=== PATIENT | female | born 1990 | race Caucasian/White ===

== ENCOUNTER → 2017-02-21 | Outpatient (REF) | payer BC, OTHER ==
[~2017-02-21] MED LIST: ACET50TA PO; IBUP-1114 PO; PREN27TA3 PO; PRENTAB9 PO
== END ==
LOC: M LAB REF 09:31
PROVIDERS: ATTEND Physician Assistant
DX: L02.211 Cutaneous abscess of abdominal wall (principal)

== ENCOUNTER → 2018-03-24 | Outpatient (CLI) | payer BC, OTHER ==
[2018-03-24 13:55] LABS: BASO % 0.2 % (0.0-1.0); EOS # 0.1 10^3/uL (0.0-0.50); EOS % 0.7 % (0.0-3.0); HEMATOCRIT 40.8 % (36.0-47.0); HEMOGLOBIN 13.4 g/dl (12.0-15.5); IMMATURE GRANULOCYTE % 0.4 % (0-3.0); LYMPH % 22.3 % (24.0-44.0); MEAN CORPUSCULAR HEMOGLOBIN 29.5 pg (27.0-33.0); MEAN CORPUSCULAR HGB CONC 32.8 g/dl (32.0-36.5); MEAN CORPUSCULAR VOLUME 89.9 fl (80.0-96.0); MONO # 0.5 10^3/uL (0.0-0.8); MONO % 4.9 % (0.0-5.0); NEUTROPHILS # 6.5 10^3/uL (1.8-7.7); NEUTROPHILS % 71.5 % (36.0-66.0); PLATELET COUNT, AUTOMATED 276 10^3/uL (150-450); RED BLOOD COUNT 4.54 10^6/uL (4.00-5.40); RED CELL DISTRIBUTION WIDTH 12.5 % (11.5-14.5); WHITE BLOOD COUNT 9.1 10^3/uL (4.0-10.0)
[2018-03-24 16:07] LABS: CHLAMYDIA DNA AMPLIFICATION NEGATIVE (NEGATIVE); GC DNA AMPLIFICATION NEGATIVE (NEGATIVE)
[2018-03-25 13:26] LABS: HEPATITIS C VIRUS ABY INDEX < 0.0 INDEX (<0.8)
[2018-03-25 13:26] LABS: HBsAg Prenatal NEGATIVE (NEGATIVE); HIV 1&2 SCREEN CENTAUR NEGATIVE (NEGATIVE); RUBELLA IgG QUALITATIVE IMMUNE (IMMUNE)
== END ==
LOC: M SMT 09:34
DX: Z36.89 Encounter for other specified antenatal screening (principal)
CPT/HCPCS: 86762

== ENCOUNTER → 2018-05-08 | Outpatient (CLI) | payer BC, OTHER | LOC: M SMT 10:39 | DX: Z36.89 Encounter for other specified antenatal screening (principal); Z3A.18 18 weeks gestation of pregnancy | CPT/HCPCS: 76811 ==

== ENCOUNTER → 2018-06-22 | Outpatient (CLI) | payer BC, OTHER ==
[~2018-06-22] MED LIST changes: -ACET50TA PO; +MAPA500T2 PO
[2018-06-22 17:47] LABS: HEMATOCRIT 36.3 % (36.0-47.0); MEAN CORPUSCULAR HEMOGLOBIN 29.7 pg (27.0-33.0); MEAN CORPUSCULAR HGB CONC 33.1 g/dl (32.0-36.5); MEAN CORPUSCULAR VOLUME 89.9 fl (80.0-96.0); PLATELET COUNT, AUTOMATED 286 10^3/uL (150-450); RED BLOOD COUNT 4.04 10^6/uL (4.00-5.40); WHITE BLOOD COUNT 12.2 10^3/uL (4.0-10.0)
== END ==
LOC: M SMT 13:39
PROVIDERS: ATTEND Obstetrics & Gynecology
DX: Z34.82 Encounter for supervision of other normal pregnancy, second trimester (principal)
CPT/HCPCS: 36415; 82950; 85027; 86850; 86900; 86901; J2790

== ENCOUNTER → 2018-09-03 | Outpatient (REF) | payer OTHER | LOC: M LAB REF 16:53 | PROVIDERS: ATTEND Obstetrics & Gynecology | DX: Z34.83 Encounter for supervision of other normal pregnancy, third trimester (principal); Z3A.00 Weeks of gestation of pregnancy not specified ==

== ENCOUNTER 2018-10-07 20:31 | Inpatient (IN) | payer BC, OTHER ==
[~2018-10-07] VITALS: Ht 160 cm; Wt 90.2 kg
[2018-10-07 21:50] VITALS: BP 134/80
[2018-10-07] MEDS ORDERED: miSOPROStol 50 MCG 1/2 TAB (S0191) PO ONE (22:45)
[2018-10-07 23:34] LABS: HEMATOCRIT 37.7 % (36.0-47.0); HEMOGLOBIN 12.5 g/dl (12.0-15.5); MEAN CORPUSCULAR HEMOGLOBIN 29.3 pg (27.0-33.0); MEAN CORPUSCULAR HGB CONC 33.2 g/dl (32.0-36.5); MEAN CORPUSCULAR VOLUME 88.3 fl (80.0-96.0); PLATELET COUNT, AUTOMATED 243 10^3/uL (150-450); RED BLOOD COUNT 4.27 10^6/uL (4.00-5.40); WHITE BLOOD COUNT 12.9 10^3/uL (4.0-10.0)
[2018-10-08] VITALS (33 sets, daily range): BP systolic 90–143; BP diastolic 45–96
[2018-10-08] MEDS ORDERED: miSOPROStol 50 MCG 1/2 TAB (S0191) PO ONE (03:30)
--- NOTE | 2018-10-08 06:17 | HPE ---
DATE OF ADMISSION: 10/07/2018 HISTORY OF PRESENT ILLNESS: Nini is a 28-year-old 2, para 1-0-0-1 at 40-5/7 weeks gestation, estimated ate of confinement (EDC) of 10/02/2018 based on last menstrual period and confirmed by first trimester ultrasound. She presents to labor and delivery today for induction of labor due to post-term . She does report some occasional cramping. Denies vaginal bleeding and leakage of fluid. The fetus has been active. Her care was initiated at a woman's perspective in the first trimester. Her course has been uncomplicated. OBSTETRICAL HISTORY: May 2016 39 weeks gestation, 6 pounds 14 ounces male spontaneous vaginal delivery. OBSTETRIC LABS: O negative, antibody screen negative, rubella immune, VDRL nonreactive. Urine culture no growth. Hep B surface antigen negative, HIV negative. Hep C antibody nonreactive. Gonorrhea and chlamydia negative. She declined genetic serum screening labs. Gestational diabetic screening normal at 80 and her GBS is negative. PAST MEDICAL HISTORY: 1. Seasonal allergies. 2. Childhood varicella. FAMILY HISTORY: Hypertension. PAST SURGICAL HISTORY: None. SOCIAL HISTORY: The patient is . Her is at bedside and supportive. She is a nonsmoker. Denies alcohol and drug use. No history of any sexually transmitted infections and denies history of abuse physical, sexual and emotional. ALLERGIES: No known drug allergies. CURRENT MEDICATIONS: - vitamins OBJECTIVE: VITAL SIGNS: Temperature 98.2, pulse 107, respirations 18, blood pressure (BP) is 134/80. She is alert and oriented times three, smiling and talkative. heart rate is 130 with moderate variability, positive accelerations, no decelerations. Contractions irregular approximately every 7-8 minutes palpate mild. Abdomen is gravid, cephalic presentation. Estimated weight 7-1/2 pounds. Sterile vaginal exam: 2 cm dilated 75% effaced, minus three station, mid position. No bloody show with the exam. ASSESSMENT: Intrauterine at 40-5/7 weeks. heart rate category one. PLAN: Admit the patient to labor and delivery. Saline lock. Routine labs. Out of bed ad byron. Regular diet at this time. I do plan to start misoprostol 50 mcg by mouth for cervical ripening and then will likely start intravenous Pitocin. Consider assisted rupture of membranes for labor augmentation. The patient does desire an epidural when she is in active labor. I did review the risks, benefits and alternatives to induction of labor. The patient and her have had all their questions answered. She does verbally consent to emergency surgery and blood products.
[2018-10-08] MEDS ORDERED: LR 1,000 ML IV SCH (08:32)
[2018-10-08] MEDS ORDERED: OXYTOCIN DRIP 30 UNITS in APPROPRIATE DILUENT 1 EA IV SCH ×2 (08:45→17:53)
[2018-10-08] MEDS ORDERED: FENTANYL 2MCG/ML ROPIVACAINE 0.2% IN 0.9% NACL 100ML IVBAG As Ordered ONE (14:50)
--- NOTE | 2018-10-08 14:53 | NUR ---
L&D Note: S: Doing well w/o complaints. Pain is manageable. O: vss, AF FHR 140s, moderate variability and spont accelerations. Contractions q3-4mins pit 5mU Gen: well appearing cx: 4/75/-2, AROm clear A/P: 28yo IOL reassuring status -good candidate for epidural -anticipate Madelin Vargas MD
[2018-10-08] MEDS ORDERED: EPIDURAL/PCA KEYS XX PRN (16:00)
[2018-10-08] MEDS ORDERED: REFRIGERATOR IV KEYS XX PRN (16:00)
[2018-10-08] MEDS ORDERED: EPIDURAL COMMENT XX SCH (16:00)
[2018-10-08] MEDS ORDERED: diphenhydrAMINE INJ 50MG/ML VIAL (J1200) IV PRN (16:00)
[2018-10-08] MEDS ORDERED: FENTANYL/ROPIVACAINE/NACL BAG 100 ML EPIDURAL SCH (16:00)
[2018-10-08] MEDS ORDERED: NALOXONE INJ 0.4 MG/1 ML VIAL (J2310) IV PRN (16:00)
[2018-10-08] MEDS ORDERED: ePHEDrine SULFATE 25 MG/5 ML(5MG/ML) SYRINGE IV PRN (16:00)
[2018-10-08] MEDS ORDERED: LACTATED RINGER'S 1000 ML IV PRN (16:00)
[2018-10-08] MEDS ORDERED: ONDANSETRON 4MG/2ML VIAL (J2405) IV PRN (16:00)
[2018-10-08] MEDS ORDERED: RHOGAM 300 MCG (1500 IU) INJ (J2790) IM SCH (18:00)
[2018-10-08] MEDS ORDERED: ACETAMINOPHEN 500 MG TAB PO PRN (18:00)
[2018-10-08] MEDS ORDERED: METHYLERGONOVINE MALEATE 0.2 MG TAB PO PRN (18:00)
[2018-10-08] MEDS ORDERED: ACETAMINOPHEN TAB 650MG DOSE (2X325MG) PO PRN (18:00)
[2018-10-08] MEDS ORDERED: IBUPROFEN 600 MG TAB PO PRN (18:00)
[2018-10-08] MEDS ORDERED: MOM 30ML SUSPENSION UDC PO PRN (18:00)
[2018-10-08] MEDS ORDERED: DOCUSATE SODIUM 100 MG CAP PO PRN (18:00)
[2018-10-08] MEDS ORDERED: MEASLES,MUMPS,RUBELLA VACCINE INJ (MMR-II) (90707) SC SCH (18:00)
[2018-10-08] MEDS ORDERED: DIBUCAINE 1% OINTMENT 30GM TOP PRN (18:00)
[2018-10-08] MEDS: IBUPROFEN 800 MG TAB PO PRN (20:08)
[2018-10-09 05:46] VITALS: BP 111/62
--- NOTE | 2018-10-09 06:26 | NUR ---
PPD#1 S: Doing well w/o complaints. Pain well controlled, + ambulation, +voids, +BF O: vss, AF gen: well appearing abd: soft, nttp, FF@U ext: neg calf tenderness A/P: PPD #1 s/p NSD, recovering in stable condition -cont routine care -d/c plans for tomorrow, possible late today Madelin Vargas MD
--- NOTE | 2018-10-09 06:30 | DN ---
DATE OF PROCEDURE: 10/08/2018 TIME OF : 1708 GENDER: Male. APGARS: 8 and 9. WEIGHT: 8 pounds 15 ounces or 4050 grams. ANESTHESIA: Epidural. LACERATIONS: None. ESTIMATED BLOOD LOSS: 200 mL. COUNTS: Five laparotomy sponges accounted for prior to and after delivery. DELIVERY NOTE: On 10/08/2018 at 1708, Mrs. Acharya, a 28-year-old 2, now para 2 had a spontaneous vaginal delivery of a live born male infant, Apgars 8 and 9, weight was 8 pounds 15 ounces 4050 grams. Head was delivered occiput anterior (OA) over intact perineum. There was in the nuchal cord, which was manually reduced and this was followed by delivery of right anterior shoulder, left posterior shoulder and corpus. The was handed to mom with good cry. Cord was clamped times two and was cut by the father of the baby under my direction. Placenta was then drained and delivered grossly intact. A pre-mixed bag of 500 mL of normal saline with 30 units of Pitocin was then bolused along with uterine massage. The uterus was firm. On inspection cervix, vagina and perineum were grossly intact and hemostatic. Mom and baby recovered in stable condition. The couple decided to name their son Michael Acharya. GARCIA
[2018-10-09 08:30] VITALS: BP 112/68
[2018-10-09] MEDS: PRENATAL VITAMINS CHEWABLE TABLET PO SCH (09:10)
[2018-10-09] MEDS: IBUPROFEN 800 MG TAB PO PRN (15:21)
[2018-10-09 18:00] VITALS: BP 114/64
[2018-10-10 06:00] VITALS: BP 124/73
[2018-10-10] MEDS: PRENATAL VITAMINS CHEWABLE TABLET PO SCH (09:08)
== END 2018-10-10 13:55 | disposition home or self-care (01) | DRG 560 ==
LOC: M LDI 20:31 → M OBS 10-08 19:05
PROVIDERS: ADMIT Advanced Practice Midwife; ATTEND Advanced Practice Midwife
PROC: 3E033VJ Introduction of Other Hormone into Peripheral Vein, Percutaneous Approach (ICD-10-PCS; 2018-10-07)
PROC: 3E0DXGC Introduction of Other Therapeutic Substance into Mouth and Pharynx, External Approach (ICD-10-PCS; 2018-10-07)
PROC: 10E0XZZ Delivery of Products of Conception, External Approach (ICD-10-PCS; principal; 2018-10-08)
DX: O48.0 Post-term pregnancy (principal); Z37.0 Single live birth; Z3A.40 40 weeks gestation of pregnancy

== ENCOUNTER → 2021-11-14 | Outpatient (REF) | payer OTHER | LOC: M LAB REF 12:11 | PROVIDERS: ATTEND Physician Assistant | DX: J02.9 Acute pharyngitis, unspecified (principal) ==

== ENCOUNTER → 2022-05-14 | Outpatient (CLI) | payer OTHER, BC ==
[2022-05-14 14:33] LABS: HEMATOCRIT 41.7 % (36.0-47.0); HEMOGLOBIN 13.7 g/dl (12.0-15.5); MEAN CORPUSCULAR HEMOGLOBIN 28.7 pg (27.0-33.0); MEAN CORPUSCULAR HGB CONC 32.9 g/dl (32.0-36.5); MEAN CORPUSCULAR VOLUME 87.4 fl (80.0-96.0); PLATELET COUNT, AUTOMATED 289 10^3/uL (150-450); RED BLOOD COUNT 4.77 10^6/uL (4.00-5.40); WHITE BLOOD COUNT 9.4 10^3/uL (4.0-10.0)
[2022-05-14 15:21] LABS: HIV 1&2 SCREEN CENTAUR NEGATIVE (NEGATIVE)
[2022-05-14 15:27] LABS: HEPATITIS C VIRUS ABY INDEX 0.1 INDEX (<0.8)
[2022-05-14 16:07] LABS: GC DNA AMPLIFICATION NEGATIVE (NEGATIVE)
== END ==
LOC: M PLALAB 11:04
PROVIDERS: ATTEND Advanced Practice Midwife
DX: Z34.81 Encounter for supervision of other normal pregnancy, first trimester (principal)

== ENCOUNTER → 2022-06-18 | Outpatient (REF) | payer OTHER | LOC: M PLALAB 12:09 | PROVIDERS: ATTEND Advanced Practice Midwife | DX: Z34.92 Encounter for supervision of normal pregnancy, unspecified, second trimester (principal) ==

== ENCOUNTER → 2022-07-18 | Outpatient (CLI) | payer BC, OTHER | LOC: M WHC 09:45 | PROVIDERS: ATTEND Advanced Practice Midwife | DX: Z34.92 Encounter for supervision of normal pregnancy, unspecified, second trimester (principal); Z3A.19 19 weeks gestation of pregnancy ==

== ENCOUNTER → 2022-09-05 | Outpatient (CLI) | payer BC, OTHER ==
[2022-09-05 17:21] LABS: HEMATOCRIT 36.3 % (36.0-47.0); HEMOGLOBIN 11.9 g/dl (12.0-15.5); MEAN CORPUSCULAR HEMOGLOBIN 30.1 pg (27.0-33.0); MEAN CORPUSCULAR HGB CONC 32.8 g/dl (32.0-36.5); MEAN CORPUSCULAR VOLUME 91.7 fl (80.0-96.0); PLATELET COUNT, AUTOMATED 265 10^3/uL (150-450); RED BLOOD COUNT 3.96 10^6/uL (4.00-5.40); WHITE BLOOD COUNT 11.8 10^3/uL (4.0-10.0)
[2022-09-05 23:21] LABS: GC DNA AMPLIFICATION NEGATIVE (NEGATIVE)
== END ==
LOC: M PLALAB 13:12
PROVIDERS: ATTEND Obstetrics & Gynecology
DX: Z34.92 Encounter for supervision of normal pregnancy, unspecified, second trimester (principal)
CPT/HCPCS: 36415; 82950; 85027; 86850; 86900; 86901; 87810; 87850; J2790

== ENCOUNTER → 2022-11-13 | Outpatient (REF) | payer BC, OTHER | LOC: M SFHCWAGY 16:49 | PROVIDERS: ATTEND Obstetrics & Gynecology | DX: Z34.93 Encounter for supervision of normal pregnancy, unspecified, third trimester (principal) ==

== ENCOUNTER 2022-12-05 18:53 | Inpatient (IN) | payer BC, OTHER ==
[~2022-12-05] VITALS: Ht 157.5 cm; Wt 87.7 kg
[2022-12-05] MEDS ORDERED: METHYLERGONOVINE MALEATE 0.2MG/ML 1ML VIAL IM PRN (19:10)
[2022-12-05] MEDS ORDERED: TRANEXAMIC ACID INJection 1,000 MG in NS 100 ML IV PRN (19:10)
[2022-12-05] MEDS ORDERED: CARBOPROST TROMETHAMINE 250 MCG/ML AMP IM PRN (19:10)
[2022-12-05] MEDS ORDERED: LACTATED RINGER'S 1000 ML IV PRN (19:10)
[2022-12-05] MEDS ORDERED: OXYTOCIN DRIP 30 UNITS in IV 1 EA IV PRN ×4 (19:10)
[2022-12-05 19:27] LABS: HEMATOCRIT 36.3 % (36.0-47.0); HEMOGLOBIN 12.2 g/dl (12.0-15.5); MEAN CORPUSCULAR HEMOGLOBIN 29.3 pg (27.0-33.0); MEAN CORPUSCULAR HGB CONC 33.6 g/dl (32.0-36.5); MEAN CORPUSCULAR VOLUME 87.3 fl (80.0-96.0); PLATELET COUNT, AUTOMATED 271 10^3/uL (150-450); RED BLOOD COUNT 4.16 10^6/uL (4.00-5.40); WHITE BLOOD COUNT 12.5 10^3/uL (4.0-10.0)
[2022-12-05 19:48] LABS: CORD GAS ABE A -1.4; CORD GAS ABE V -1.6; CORD GAS HCO3 A 24.3 MMOL/L; CORD GAS HCO3 V 22.5 MMOL/L; CORD GAS PCO2 A 44.6 mmHg; CORD GAS PCO2 V 36.2 mmHg; CORD GAS PH A 7.354 UNITS; CORD GAS PH V 7.411 UNITS; CORD GAS PO2 A 16.4 mmHg; CORD GAS PO2 V 27.9 mmHg; CORD GAS SBC A 21.9 MMOL/L; CORD GAS SBC V 22.6 MMOL/L; CORD GAS TCO2 A 25.7 MMOL/L; CORD GAS TCO2 V 23.6 MMOL/L
[2022-12-05 21:45] VITALS: BP 130/69; O2SAT 95
[2022-12-06 06:07] VITALS: BP 120/60; O2SAT 99
[2022-12-06] MEDS ORDERED: ACETAMINOPHEN 500 MG TAB PO PRN (10:05)
[2022-12-06] MEDS ORDERED: IBUPROFEN 600MG TAB PO PRN (10:05)
[2022-12-06] MEDS ORDERED: RHOGAM 300MCG (1500IU) INJ IM SCH (10:05)
[2022-12-06] MEDS ORDERED: DOCUSATE SODIUM 100MG CAPSULE PO PRN (10:05)
[2022-12-06] MEDS ORDERED: DIBUCAINE 1% OINTMENT 30GM TOP PRN (10:05)
[2022-12-06] MEDS ORDERED: METHYLERGONOVINE MALEATE 0.2 MG TAB PO PRN (10:05)
[2022-12-06] MEDS ORDERED: ANUSOL HC CREAM 30GM TOP PRN (10:05)
[2022-12-06 18:00] VITALS: BP 118/64
[2022-12-07 06:00] VITALS: BP 133/84; O2SAT 98
[2022-12-07] MEDS ORDERED: IBUP-1022 PO (08:09)
[2022-12-07] MEDS ORDERED: ACET-683 PO (08:09)
[2022-12-07] MEDS ORDERED: PRENATAL VITAMINS CHEWABLE TABLET PO SCH (09:00)
[2022-12-08] MEDS ORDERED: MEASLES,MUMPS,RUBELLA VACCINE INJ (MMR-II) SC.IMMUN ONE (09:00)
== END 2022-12-07 13:30 | disposition home or self-care (01) | DRG 560 ==
LOC: M LDO 18:53 → M LDI 19:07 → EEVIPCON 19:07 → M OBS 21:45
PROVIDERS: ADMIT Obstetrics & Gynecology; ATTEND Obstetrics & Gynecology
PROC: 10E0XZZ Delivery of Products of Conception, External Approach (ICD-10-PCS; principal; 2022-12-05)
DX: O66.0 Obstructed labor due to shoulder dystocia (principal); Z37.0 Single live birth; Z3A.39 39 weeks gestation of pregnancy; O69.81X0 Labor and delivery complicated by cord around neck, without compression, not applicable or unspecified